=== PATIENT | female | born 1955 | race Caucasian/White ===

== ENCOUNTER 2016-10-11 17:23 | Emergency (ER) | payer BC, MEDICARE, OTHER ==
[~2016-10-11] VITALS: Ht 165.1 cm; Wt 121.2 kg
[~2016-10-11 17:23] MED LIST: ALBU8.5H8 INH; ALPR0.5T6 PO; APIX5TAB3 PO; ATOR40TA59 PO; Acetaminophen With Codeine PO; BACL10TA PO; Baclofen PO; CEFP200T PO; CELE100C PO; ESCITALOPRAM OX20 MG PO; ESOM40CA25 PO; FLUT10SP NS; FURO-68 PO; GUAI600T47 PO; HYDR50TA6 PO; INSU100C SQ; INSU100I13 SQ; INSU500I SQ; LOSA50TA6 PO; METF10002 PO; METH-37 PO; NYST1POW2 PO; OXYC1TAB9 PO; OXYM10TA3 PO; OXYM20TA17 PO; OXYM30TA PO; OXYM5TAB3 PO; PRAM0.125 PO; PRAM0.5T5 PO; PRAM0.753 PO; PRED-220 PO; PREG300C PO; eliquis; losartan; methocarbamol
[2016-10-11 17:35] VITALS: BP 140/71
--- NOTE | 2016-10-11 17:51 | PHYS DOC ---
General Chief Complaint: SKIN RASH/ABSCESS Stated Complaint: POISON BURKE Time Seen by MD: 17:48 Source: patient Exam Limitations: no limitations Problems: History of Present Illness Initial Comments Patient is a 61-year-old female with history of diabetes who comes to the ED complaining of poison burke. Patient states that she and her family got poison burke while cleaning her son's yard 2 weeks ago. After failing home remedies including topical bleach, topical apple cider, topical Nadya dishwashing detergent, she contacted her primary care doctor earlier this week and took a short course of low-dose prednisone as well as klfb-dwt-yefocsy topical steroids. Patient states that it hasn't helped that much and she has 1 lesion at her lateral left lower leg she thinks is infected. She has diabetic her glucose has been elevated due to prednisone however she has an insulin pump and titrates her insulin accordingly. She denies dyspnea on exertion cough wheeze hoarseness or lump in throat, she is uncertain when she last received tetanus vaccination but she knows it was not recent. Timing/Duration: 1 week Severity: moderate Modifying Factors: improves with cold therapy, worse with movement, improves with rest Associated Symptoms: rash Allergies: Coded Allergies: oxycodone (Verified Allergy, Intermediate, 04/20/16) vancomycin (Unverified Allergy, Intermediate, 04/20/16) I S O L A T I O N *CONTACT* (Verified Allergy, Unknown, 04/22/16) hx MRSA nasal screen 09/30/13 Past Medical History Medical History: other (arthritis, COPD, diabetes, fibromyalgia, hyperlipidemia , hypertension) Surgical History: noncontributory, other Social History Smoker: cigarettes Alcohol: rarely Drugs: none Review of Systems Constitutional: denies chills, denies diaphoresis, denies fever, denies malaise EENTM: denies eye pain, denies blurred vision, denies ear pain, denies throat swelling, denies mouth swelling Respiratory: denies cough, denies orthopnea, denies shortness of breath, denies stridor, denies wheezing Cardiovascular: denies chest pain, denies palpitations, denies syncope Gastrointestinal: denies diarrhea, denies nausea, denies vomiting Genitourinary: denies frequency, denies hematuria Musculoskeletal: denies back pain, denies joint swelling, denies neck pain Skin: see HPI Physical Exam General Appearance: no apparent distress, obese Ear, Nose, Throat: hearing grossly normal, normal ENT inspection, normal pharynx Neck: non-tender, supple Respiratory: lungs clear, normal breath sounds, no respiratory distress Back: no CVA tenderness, no vertebral tenderness Extremities: normal range of motion, no pedal edema, no calf tenderness Neurologic/Psychiatric: 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 Patient does not want to remain in the department to see if medications work she is requesting treatment and discharge she will follow-up as needed. She was advised to drink alcohol in moderation and discontinue smoking cigarettes. Departure Time of Disposition: 17:49 Disposition: 01 HOME, SELF-CARE Diagnosis: poison burke with secondary cellulitis Condition: STABLE Patient Instructions: Cellulitis, Sesp-yj-Ppvz, Poison Burke, Htzf-jq-Kdoq, VIS, Tetanus, Diphtheria (Td); Tetanus, Diphtheria, Pertussis (Tdap) - CDC Additional Instructions: Rest, no strenuous activity. Remain in a cool temperature environment profitable symptom control. Change linens and towels daily. Vnoq-alt-uyyfsok Pepcid twice daily, dfct-gas-kprtfun Benadryl for daytime symptoms per package instructions. May also consider topical Benadryl. Prescription: Prednisone 20 mg twice daily for 5 days, hydroxyzine 25 mg for nighttime symptoms due to sedation. Doxycycline 100 mg twice daily for 7 days to be taken with food. Continue close glucose monitoring with insulin titration. Follow-up with your doctor on Friday for recheck. Return to the ED with new or changing symptoms. KARLY POWERS DO Oct 11, 2016 17:51
[2016-10-11] MEDS ORDERED: predniSONE 20 MG TABLET PO ONE (18:15)
[2016-10-11] MEDS ORDERED: DIPHTH,PERTUSS(ACELL),TET TOX 0.5 ML DISP.SYRIN. VAX IM ONE (18:15)
== END 2016-10-11 18:08 | disposition home or self-care (01) ==
LOC: ER 17:23
DX: L23.7 Allergic contact dermatitis due to plants, except food (principal); L03.116 Cellulitis of left lower limb; J44.9 Chronic obstructive pulmonary disease, unspecified; M79.7 Fibromyalgia; I10 Essential (primary) hypertension; E78.5 Hyperlipidemia, unspecified; E11.9 Type 2 diabetes mellitus without complications; F17.210 Nicotine dependence, cigarettes, uncomplicated; Z96.41 Presence of insulin pump (external) (internal); Z79.4 Long term (current) use of insulin; Z88.5 Allergy status to narcotic agent; Z88.1 Allergy status to other antibiotic agents; Z91.041 Radiographic dye allergy status
CPT/HCPCS: 90471; 90715; 99283; J7512

== ENCOUNTER 2019-12-19 03:27 | Emergency (ER) | payer BC, MEDICARE, OTHER ==
[~2019-12-19] VITALS: Ht 162.6 cm; Wt 82.0 kg
[~2019-12-19 03:27] MED LIST changes: +ALBU2.5V8 INH; -ALBU8.5H8 INH; -LOSA50TA6 PO; +LOSA50TA86 PO; -METF10002 PO; +METF10007 PO; +OXYC1TAB20 PO; -OXYC1TAB9 PO
--- NOTE | 2019-12-19 03:43 | PHYS DOC ---
Past History Past Medical History: Arthritis, COPD, Diabetes, Fibromyalgia, High Cholesterol, Hypertension Past Surgical History: Cholecystectomy, Other Smoking: Cigarettes Alcohol Use: Rarely Drug Use: None General Adult EDM: Chief Complaint: MECHANICAL FALL HPI: HPI: ".. I got up to let the dogs out to go pee.. .. all three started barking .. Vaughn started it off... Misty and Antoine just went crazy too.. but I was afraid it would wake the neighbors... So was rushing through the sliding glass door.. missed stepped fell into frame hitting my Lt shoulder.. then went down hard on my face.. I was cristian knocked sense less.. could nt move for a bit.. and the all three of the dogs were all upset and all over me.. I was yelling for my .. the lip was squirting blood all over the place.. ".." Vaughn my baby.. he's a big chocolate lab but thinks he a lap dog..." Patient is a 64 year old female who presents with above hx and fall with head injury . Pt. has laceration 1 cm x 2 cm x 2 cm flap of upper lip with arterial bleeding. Patient states she had momentary loss of consciousness and was stunned with the fall. Patient complained of pain in left shoulder. Patient complaining of headache and facial pain, and has obvious ecchymosis on left side of face. Patient has obvious bruising to right hand. Patient has obvious muscle spasms para cervical and into the trapezius bilaterally. Patient does have history of previous chronic pain fibromyalgia. Is on a chronic pain regimen. Patient denies any recent travel outside the [facility]. No specific ill contacts. Patient does smoke. Patient normally follows with Dr. Cordoba. Review of Systems: Review of Systems: Constitutional: Denies fever or chills Eyes: Denies change in visual acuity HENT: Complains of head injury and lip laceration Respiratory: Denies cough or shortness of breath Cardiovascular: Denies chest pain or edema GI: Denies abdominal pain, nausea, vomiting, bloody stools or diarrhea : Denies dysuria Musculoskeletal: Complains of cervical and left shoulder pain Integument: Denies rash Neurologic: Complains of headache. Denies, focal weakness or sensory changes Endocrine: Denies polyuria or polydipsia Lymphatic: Denies swollen glands Psychiatric: Denies depression or anxiety Heart Score: HEART Score for Chest Pain: HEART Score for Chest Pain Response (Comments) Value History Slighlty/Non-Suspicious 0 ECG Normal 0 Total 0 Risk Factors: Risk Factors: DM, Current or recent (<one month) smoker, HTN, HLP, family history of CAD, obesity. Risk Scores: Score 0 - 3: 2.5% MACE over next 6 weeks - Discharge Home Score 4 - 6: 20.3% MACE over next 6 weeks - Admit for Clinical Observation Score 7 - 10: 72.7% MACE over next 6 weeks - Early Invasive Strategies Family History: Family History: Noncontributory Current Medications: Current Meds: See nursing for home meds Allergies: Allergies: Allergies Coded Allergies Type Severity Reaction Last Updated Verified oxycodone Allergy Intermediate 04/20/16 Yes vancomycin Allergy Intermediate 04/20/16 No I S O L A T I O N *CONTACT* Allergy Unknown 04/22/16 Yes Physical Exam: PE: Constitutional: in acute distress, non-toxic appearance. [] HENT: Normocephalic, left-sided face contused, bilateral external ears normal, oropharynx moist, no oral exudates, nose normal. Laceration to upper lip. Dentures. Has good bite. Eyes: PERRLA, EOMI, conjunctiva normal, no discharge. [] Neck: Normal but guarded range of motion, cervical muscle spasms and tenderness, , no stridor. [] Cardiovascular:Heart rate regular rhythm, no murmur [, PMI at the left Lungs & Thorax: Bilateral breath sounds equal apexes scattered wheezes on auscultation [] Abdomen: Bowel sounds normal, soft, no tenderness, no masses, no pulsatile masses. [] Old surgery scars Skin: Warm, dry, no erythema, no rash. Has areas of skin that she picks Back: No tenderness, no CVA tenderness. [] Extremities: Left shoulder tenderness, no cyanosis, no clubbing, ROM intact, no edema. [] Multiple surgery scars right shoulder. Ecchymosis on right hand Neurologic: Alert and oriented X 3, moves all extremities on request, has distal sensory no focal deficits noted. [] Psychologic: Affect anxious, judgement normal, mood normal. [] EKG: EKG: [] Radiology/Procedures: Radiology/Procedures: [] [address] [place] [id number] IMAGING REPORT Signed PATIENT: HENRRY CARDOZA ACCOUNT: [id number] : 1955 LOCATION: ER AGE: 64 SEX: F EXAM STATUS: REG ER ORD. PHYSICIAN: REVA CANDELARIA MD REASON: face plant during fall PROCEDURE: CT HEAD AND CERVICAL SPINE WO CT head without contrast. Maxillofacial CT without contrast. CT cervical spine without contrast. HISTORY: Fall, facial trauma, pain. CT head findings: No intracranial hemorrhage, mass, hydrocephalus, extra-axial fluid collections or infarction. No acute ischemic changes evident. Left facial soft tissue edema and swelling. Orbits, mastoids and bones are unremarkable. IMPRESSION: No acute intracranial CT abnormality. Maxillofacial CT findings: Cartilaginous nasal septal perforation posteriorly. Mucosal thickening floor the left maxillary sinus. No facial bone fracture. Maxilla intact. Mandible intact. Bony orbits intact. Nasal bones intact. No orbital edema or hematoma. There is mild soft tissue edema and swelling of the left female are facial soft tissues. IMPRESSION: Facial bones intact. Left facial soft tissue edema and swelling likely contusion. CT cervical spine findings: Craniocervical junction intact. Cervical vertebral body height and alignment intact. No fracture of the cervical spine. Cervical disc bulges as well as disc osteophytes and uncovertebral spurring. Spinal canal and neural foraminal stenoses most notable at C4-C5 with a large disc herniation with severe canal stenosis, and at C5-C6 with a bulky disc osteophyte with severe canal stenosis. IMPRESSION: No acute osseous injury of the cervical spine. Cervical disc disease as described above. Exposure: One or more of the following individualized dose reduction techniques were utilized for this examination: 1. Automated exposure control 2. Adjustment of the mA and/or kV according to patient size 3. Use of iterative reconstruction technique Electronically signed by: Kathy Kahn MD (12/19/2019 5:03 AM) [facility] DICTATED AND SIGNED BY: KATHY KAHN MD DATE: 12/19/19 0503 CC: EDELMIRA CORDOBA MD; REVA CANDELARIA MD ~ Course & Med Decision Making: Course & Med Decision Making Pertinent Labs and Imaging studies reviewed. (See chart for details) Procedure note-laceration repair-injected into the laceration with 2% lidocaine after cleaning. Area re cleaned, laceration irrigated with normal saline. Closed laceration with 4 x 4-0 Vicryl sutures. One internal Vicryl suture. Patient keep laceration clean. Avoid excessive hot fluids or spicy foods. Apply Polysporin 4 times a day. Informed patient may lose the flap avulsion laceration. Patient discharged with head injury precautions. Take meds as previous directed. Sleep with head elevated. Use ice packs. To expect increased soreness and stiffness the next 5 days. But should gradually have improvement after day 5. Patient follow-up primary care. Patient return if any concerns. Impression": 1. Trip and fall 2. Head injury 3. Multiple contusions 4. Cervical sprain strain 5. 2 x 2 x 1 cm upper lip laceration-avulsion [] Tiffany Disclaimer: Dragon Disclaimer: This electronic medical record was generated, in whole or in part, using a voice recognition dictation system. Departure Departure: Disposition: 01 HOME/RESIDENCE PRIOR TO ADM Condition: STABLE Referrals: EDELMIRA CORDOBA MD (PCP) Tiffany Disclaimer This chart was dictated in whole or in part using Voice Recognition software in a busy, high-work load, and often noisy Emergency Department environment. It may contain unintended and wholly unrecognized errors or omissions. REVA CANDELARIA MD Dec 19, 2019 03:43
[2019-12-19] MEDS ORDERED: DIPH,PERTUSS(ACELL),TET VAC/PF 0.5 ML SYRINGE. VAX IM ONE (04:00)
[2019-12-19] MEDS ORDERED: LIDOCAINE 2% 20 ML VIAL. IJ ONE (04:00)
[2019-12-19] MEDS ORDERED: MORPHINE SULFATE 10 MG/ML SYRINGE. SQ ONE (04:15)
--- NOTE | 2019-12-19 05:06 | RAD ---
CT head without contrast. Maxillofacial CT without contrast. CT cervical spine without contrast. HISTORY: Fall, facial trauma, pain. CT head findings: No intracranial hemorrhage, mass, hydrocephalus, extra-axial fluid collections or infarction. No acute ischemic changes evident. Left facial soft tissue edema and swelling. Orbits, mastoids and bones are unremarkable. IMPRESSION: No acute intracranial CT abnormality. Maxillofacial CT findings: Cartilaginous nasal septal perforation posteriorly. Mucosal thickening floor the left maxillary sinus. No facial bone fracture. Maxilla intact. Mandible intact. Bony orbits intact. Nasal bones intact. No orbital edema or hematoma. There is mild soft tissue edema and swelling of the left female are facial soft tissues. IMPRESSION: Facial bones intact. Left facial soft tissue edema and swelling likely contusion. CT cervical spine findings: Craniocervical junction intact. Cervical vertebral body height and alignment intact. No fracture of the cervical spine. Cervical disc bulges as well as disc osteophytes and uncovertebral spurring. Spinal canal and neural foraminal stenoses most notable at C4-C5 with a large disc herniation with severe canal stenosis, and at C5-C6 with a bulky disc osteophyte with severe canal stenosis. IMPRESSION: No acute osseous injury of the cervical spine. Cervical disc disease as described above. Exposure: One or more of the following individualized dose reduction techniques were utilized for this examination: 1. Automated exposure control 2. Adjustment of the mA and/or kV according to patient size 3. Use of iterative reconstruction technique Electronically signed by: Rachid Kahn MD (12/19/2019 5:03 AM) [facility]
[2019-12-19 05:15] VITALS: BP 143/70
--- NOTE | 2019-12-19 05:16 | RAD ---
Left shoulder AP and scapular x-rays 3 views HISTORY: Fall, pain. FINDINGS: Arthrosis acromioclavicular joint with osteophytes and mild capsule thickening. No fracture. No dislocation. No distraction of the acromioclavicular joint. IMPRESSION: No acute osseous injury of the left shoulder. PA and lateral chest x-rays HISTORY: Fall, pain. FINDINGS: Heart size normal. Mediastinal silhouette is normal. No pneumothorax, pulmonary opacities or pleural effusions. Lower thoracic bridging disc osteophytes. Absence right lateral clavicle likely surgical resection. IMPRESSION: No acute process in the chest. Electronically signed by: Rachid Kahn MD (12/19/2019 5:13 AM) [facility]
== END 2019-12-19 05:48 | disposition home or self-care (01) ==
LOC: ER 03:27
DX: S01.511A Laceration without foreign body of lip, initial encounter (principal); S13.9XXA Sprain of joints and ligaments of unspecified parts of neck, initial encounter; S00.83XA Contusion of other part of head, initial encounter; S60.221A Contusion of right hand, initial encounter; M19.90 Unspecified osteoarthritis, unspecified site; J44.9 Chronic obstructive pulmonary disease, unspecified; E11.9 Type 2 diabetes mellitus without complications; M79.7 Fibromyalgia; E78.00 Pure hypercholesterolemia, unspecified; I10 Essential (primary) hypertension; F17.210 Nicotine dependence, cigarettes, uncomplicated; Z88.5 Allergy status to narcotic agent; Z88.1 Allergy status to other antibiotic agents; Z88.8 Allergy status to other drugs, medicaments and biological substances; W10.8XXA Fall (on) (from) other stairs and steps, initial encounter; Y93.89 Activity, other specified; Y92.89 Other specified places as the place of occurrence of the external cause; Y99.8 Other external cause status
CPT/HCPCS: 12011; 70450; 70486; 71046; 72125; 73030; 90471; 90715; 96372; 99285; J2270

== ENCOUNTER 2020-04-10 01:49 | Emergency (ER) | payer MEDICARE, BC, OTHER ==
[~2020-04-10] VITALS: Ht 162.6 cm; Wt 82.0 kg
--- NOTE | 2020-04-10 01:56 | PHYS DOC ---
Past History Past Medical History: CAD, COPD, Diabetes, DVT, Fibromyalgia, High Cholesterol, Hypertension, Other Additional Past Medical Histor: Cirosis, MS, Fibromyalgia Past Medical History Morbid Obesity, sleep apnea, Past Surgical History: Cholecystectomy, Knee Replacement, Oophorectomy, Tubal ligation Additional Past Surgical Histo: Gastric bypass, partial hysterectomy, shoulder surgery rt Past Surgical History Carpal tunnel , paraspinal abscess drainage Smoking: Cigarettes Alcohol Use: None Drug Use: None General Adult HPI: HPI: ".. I didnt see my dog Antoine.. he is eleven yrs old.. and black .and I tripped over him ..landed hard on this Lt shoulder.. I can't even move because of the pain.. I did bang up my knees.. but they are okay.. " ..." Antoine I think is okay.. ".. " I think you are the one that sutured up my mouth the last time I fell over the dogs..".." back in December..." " I think .. I am hurt worse this time... " Patient is a 64 year old FEMALE who presents with above hx of trip and fall over her dog "Antoine". Pt. localized pain primarily in Lt. shoulder . Obvious edema, contusion. Pt.dose have deltoid sensation, but can not move at all because of pain. Pt. denies any head injury. Denies any chest pain. Other than that and the area of the shoulder injury and mid back . Does have distal cap refill and left hand that appears to be somewhat equal to right hand. Patient is right-hand dominant. Does have contusions both knees. Patient is ambulatory however with the contusions to the knees. . Recent travel. No severe ill contacts. Does have a history of diabetes type 2, COPD, hypertension, hyperlipidemia, fatty liver, morbid obesity, obstructive sleep apnea and is on CPAP, severe osteoarthritis, DVT, paraspinal abscesses, DWAYNE, carpal tunnel syndrome, fibromyalgia, tobacco use, chronic pain, and history of multiple surgeries. Patient denies any recent travel outside the [place] area. No specific ill contacts. Patient does continue to smoke. Patient has approximately [id number] smoking history. Patient rarely drinks alcohol. Does not use drugs. 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 Pt. follows with Dr. Cordoba as a primary Review of Systems: Review of Systems: Constitutional: Denies fever or chills Eyes: Denies change in visual acuity HENT: Denies nasal congestion or sore throat Respiratory: Denies cough or shortness of breath Cardiovascular: Denies chest pain or edema GI: Denies abdominal pain, nausea, vomiting, bloody stools or diarrhea : Denies dysuria Musculoskeletal: Patient's primary complaint tonight is left shoulder pain., Contusions bilateral knees Integument: Denies rash Neurologic: Denies headache, focal weakness or sensory changes Endocrine: Denies polyuria or polydipsia Lymphatic: Denies swollen glands Psychiatric: Denies depression or anxiety Family History: Family History: Father of complications of surgery at age 58, mother age 83 from breast cancer. Has 3 sons. Current Medications: Current Meds: See nursing for home meds Allergies: Allergies: Allergies Coded Allergies Type Severity Reaction Last Updated Verified oxycodone Allergy Intermediate 12/19/19 Yes vancomycin Allergy Intermediate 12/19/19 No I S O L A T I O N *CONTACT* Allergy Unknown 04/22/16 Yes Physical Exam: PE: Constitutional: inacute distress, non-toxic appearance. [] HENT: Normocephalic, atraumatic, bilateral external ears normal, oropharynx moist, no oral exudates, nose normal. []Scar on lip from previous suture repair Eyes: PERRLA, EOMI, conjunctiva normal, no discharge. [] Neck: Limited range of motion, no tenderness, supple, no stridor. Cardiovascular:Heart rate regular rhythm, no murmur, PMI not on the left Lungs & Thorax: Bilateral breath sounds equal apex with scattered wheezes auscultation [] Abdomen: Bowel sounds normal, soft, no tenderness, no masses, no pulsatile masses. Old surgical scars Skin: Warm, dry, no erythema, no rash. Poor turgor. Back: No tenderness, no CVA tenderness. Surgical scars to back Extremities: No tenderness, no cyanosis, no clubbing, ROM intact, no edema. Bilateral knee surgery scars. Right shoulder surgery scar Neurologic: Alert and oriented X 3, moves extremities on request however limited in left arm because of pain, does have distal sensory,, no focal deficits noted. [] Psychologic: Affect anxious judgement normal, mood normal. [] EKG: EKG: [] Radiology/Procedures: Radiology/Procedures: [][address] [id number] IMAGING REPORT Signed PATIENT: HENRRY CARDOZA ACCOUNT: [id number] : 1955 LOCATION: ER AGE: 64 SEX: F EXAM STATUS: REG ER ORD. PHYSICIAN: REVA CANDELARIA MD REASON: fall over dog Antoine PROCEDURE: SHOULDER 2+V LEFT XR SHOULDER_LEFT 2+ VIEWS, XR HUMERUS_LT 2 VIEWS Clinical Indication: Reason: fall over dog Antoine / Spl. Instructions: / History: Comparison: Left shoulder, 3 views, December 19, 2019. Findings: There is no glenohumeral dislocation. There is acute traumatic mildly comminuted fracture of the surgical neck of the proximal humerus. The distal fracture fra gment is medially displaced. No fracture of the more distal humerus is seen. No obvious deformity of the elbow. There is mild AC arthropathy. No acute displaced left rib fracture is identified. Left upper lung is clear. Soft tissues unremarkable. IMPRESSION: Acute traumatic fracture of the surgical neck of the humerus. Electronically signed by: Satnam Kuo MD (04/10/2020 3:11 AM) [facility] DICTATED AND SIGNED BY: SATNAM KUO MD DATE: 04/10/20309 CC: EDELMIRA CORDOBA MD; REVA CANDELARIA MD ~MTH0 0 Heart Score: HEART Score for Chest Pain: HEART Score for Chest Pain Response (Comments) Value Age >45 - < 65 1 Risk Factors 1 or 2 Risk Factors 1 Total 2 Risk Factors: Risk Factors: DM, Current or recent (<one month) smoker, HTN, HLP, family history of CAD, obesity. Risk Scores: Score 0 - 3: 2.5% MACE over next 6 weeks - Discharge Home Score 4 - 6: 20.3% MACE over next 6 weeks - Admit for Clinical Observation Score 7 - 10: 72.7% MACE over next 6 weeks - Early Invasive Strategies Course & Med Decision Making: Course & Med Decision Making Pertinent Labs and Imaging studies reviewed. (See chart for details) Patient call Ortho choice this morning.. Given [facility] orthro [phone] . Patient is ice packs as needed, wear splint and sling. Tylenol and ibuprofen for pain. For marked discomfort take Vicoprofen up to 4 times a day. Must follow-up with orthopedics since sometimes next fractures require surgical repair with repair. Patient follow-up primary care. Patient use extreme caution to avoid another fall. Impression: 1. Trip and fall- over dog " Antoine" 2. Traumatic fracture surgical neck of humerus 3. Non displaced rib fracture 4. DM 245 [] Dragon Disclaimer: Dragon Disclaimer: This electronic medical record was generated, in whole or in part, using a voice recognition dictation system. Departure Departure: Referrals: EDELMIRA CORDOBA MD (PCP) Scripts Oxycodone Hcl/Acetaminophen (PERCOCET 5-325 MG TABLET ) 1 Each Tablet 1 TAB PO PRN Q6HRS PRN for PAIN, #30 TAB Prov: REVA CANDELARIA MD 04/10/20 Hydrocodone/Ibuprofen (HYDROCODONE-IBUPROFEN 7.5-200 ) 1 Each Tablet 1 TAB PO PRN Q6HRS PRN for PAIN, #30 TAB 0 Refills Prov: REVA CANDELARIA MD 04/10/20 Dragon Disclaimer This chart was dictated in whole or in part using Voice Recognition software in a busy, high-work load, and often noisy Emergency Department environment. It may contain unintended and wholly unrecognized errors or omissions. Dragon Disclaimer This chart was dictated in whole or in part using Voice Recognition software in a busy, high-work load, and often noisy Emergency Department environment. It may contain unintended and wholly unrecognized errors or omissions. REVA CANDELARIA MD Apr 10, 2020 01:56
[2020-04-10] MEDS ORDERED: IV RINGERS SOLUTION,LACTATED 1,000 ML IV SCH (02:30)
[2020-04-10] MEDS ORDERED: MORPHINE SULFATE 10 MG/ML SYRINGE. SQ ONE ×2 (02:30→04:15)
--- NOTE | 2020-04-10 03:12 | RAD ---
XR CHEST 2V History: Reason: fall over dog Antoine / Comparison: Two-view chest December 19, 2019. Findings: The cardiomediastinal silhouette is normal. Pulmonary vasculature is normal. The lungs are clear. No pleural effusion or pneumothorax is seen. There is acute fracture of the proximal left humerus. Pleas e refer to separately dictated left shoulder radiographs. Degenerative endplate spurring of the thora cic spine. IMPRESSION: No acute cardiopulmonary process. Electronically signed by: Satnam Kuo MD (04/10/2020 3:10 AM) [facility]
--- NOTE | 2020-04-10 03:14 | RAD ---
XR SHOULDER_LEFT 2+ VIEWS, XR HUMERUS_LT 2 VIEWS Clinical Indication: Reason: fall over dog Antoine / Spl. Instructions: / History: Comparison: Left shoulder, 3 views, December 19, 2019. Findings: There is no glenohumeral dislocation. There is acute traumatic mildly comminuted fracture of the surg ical neck of the proximal humerus. The distal fracture fragment is medially displaced. No fracture of the more distal humerus is seen. No obvious deformity of the elbow. There is mild AC arthropathy. No acute displaced left rib fracture is identified. Left upper lung is clear. Soft tissues unremarkable . IMPRESSION: Acute traumatic fracture of the surgical neck of the humerus. Electronically signed by: Satnam Kuo MD (04/10/2020 3:11 AM) [email or web address]
[2020-04-10 03:26] LABS: BASO % 1 % (0-3); EOS # 0.1 x10^3/uL (0.0-0.7); EOS % 2 % (0-3); HEMATOCRIT 41.8 % (36.0-47.0); HEMOGLOBIN 13.7 g/dL (12.0-15.5); LYMPH # 1.8 x10^3/uL (1.0-4.8); LYMPH % 29 % (24-48); MEAN CORPUSCULAR HEMOGLOBIN 30 pg (25-35); MEAN CORPUSCULAR HGB CONC 33 g/dL (31-37); MEAN CORPUSCULAR VOLUME 91 fL (79-100); MONO # 0.3 x10^3/uL (0.0-1.1); MONO % 5 % (0-9); NEUT % 64 % (31-73); PLATELET COUNT 169 x10^3/uL (140-400); RED BLOOD COUNT 4.62 x10^6/uL (3.50-5.40); WHITE BLOOD COUNT 6.2 x10^3/uL (4.0-11.0)
[2020-04-10 03:38] LABS: CALCIUM 8.7 mg/dL (8.5-10.1); CREATININE 0.9 mg/dL (0.6-1.0); GFR 63.4; POTASSIUM 4.5 mmol/L (3.5-5.1)
[2020-04-10] MEDS ORDERED: HYDR-1179 PO (03:58)
--- NOTE | 2020-04-10 04:48 | EKG ---
[address] [address] Test Date: 2020-04-10 Test Time: 04:34:40 Pat Name: HENRRY CARDOZA Department: Room: Gender: F Scanning Clerk: YOVANA : 1955 Requested By: REVA CANDELARIA Order Number: [id number] Reading MD: Measurements Intervals [place] Rate: 73 P: 34 CO: 202 QRS: 29 QRSD: 68 T: 38 QT: 366 QTc: 407 Interpretive Statements SINUS RHYTHM LOW LIMB LEAD VOLTAGE NO SPECIFIC ECG ABNORMALITIES RI6.02 No previous ECG available for comparison
[2020-04-10 05:10] VITALS: BP 131/78
[2020-04-10] MEDS ORDERED: OXYC1TAB15 PO (05:13)
== END 2020-04-10 05:10 | disposition home or self-care (01) ==
LOC: ER 01:49
DX: S42.212A Unspecified displaced fracture of surgical neck of left humerus, initial encounter for closed fracture (principal); S22.32XA Fracture of one rib, left side, initial encounter for closed fracture; S80.02XA Contusion of left knee, initial encounter; S80.01XA Contusion of right knee, initial encounter; E11.9 Type 2 diabetes mellitus without complications; J44.9 Chronic obstructive pulmonary disease, unspecified; I10 Essential (primary) hypertension; E78.5 Hyperlipidemia, unspecified; E66.01 Morbid (severe) obesity due to excess calories; Z68.31 Body mass index [BMI] 31.0-31.9, adult; M79.7 Fibromyalgia; Z98.84 Bariatric surgery status; F17.210 Nicotine dependence, cigarettes, uncomplicated; Z88.5 Allergy status to narcotic agent; Z88.1 Allergy status to other antibiotic agents; Z88.8 Allergy status to other drugs, medicaments and biological substances; W01.0XXA Fall on same level from slipping, tripping and stumbling without subsequent striking against object, initial encounter; Y93.89 Activity, other specified; Y92.89 Other specified places as the place of occurrence of the external cause; Y99.8 Other external cause status
CPT/HCPCS: 29105; 36415; 71046; 73030; 73060; 80048; 82550; 84484; 85025; 85610; 85730; 93005; 96360; 96361; 96372; 99285; J2270; J7120

== ENCOUNTER → 2020-04-27 | Outpatient (CLI) | payer MEDICARE, BC, OTHER ==
[2020-04-10 05:10] VITALS: BP 131/78
[~2020-04-27] MED LIST changes: +HYDR-1179 PO; -HYDR50TA6 PO; +HYDR50TA9 PO; +OXYC1TAB15 PO
--- NOTE | 2020-04-27 16:29 | RAD ---
Left shoulder 3 views INDICATION: Shoulder pain COMPARISON: 04/10/2020 left shoulder x-rays FINDINGS: Plate and screw construct fixation of the proximal left humeral neck fracture is newly apparent with stable mild deformity of the surgical neck of the left humerus. There is no significant callus format ion. No dislocation. No additional fractures. Coarse reticular densities in the lungs are incidentall y noted, similar to prior. IMPRESSION: Plate and screw construct fixation of a left femoral neck fracture with residual deformity and no sig nificant callus formation shown. Electronically signed by: Jed Morales MD (04/27/2020 4:27 PM) [id number]
== END ==
LOC: RAD 12:47
PROVIDERS: ATTEND Physician Assistant
DX: S72.092D Other fracture of head and neck of left femur, subsequent encounter for closed fracture with routine healing (principal); X58.XXXD Exposure to other specified factors, subsequent encounter; Z98.890 Other specified postprocedural states
CPT/HCPCS: 73030

== ENCOUNTER → 2020-05-26 | Outpatient (CLI) | payer MEDICARE, BC, OTHER ==
--- NOTE | 2020-05-26 11:55 | RAD ---
EXAM: Left shoulder, 3 views. HISTORY: Pain. Fracture follow-up. COMPARISON: 04/27/2020 FINDINGS: 3 views of the left shoulder obtained. There is internal fixation of a proximal humeral fra cture with a plate and multiple screws. There has been no significant interval healing along the frac ture line compared to the prior study. There is no evidence of instrumentation loosening. IMPRESSION: Internal fixation of a proximal humeral fracture. There has been no change in instrumenta tion and no significant interval healing. Electronically signed by: Medina Seth MD (05/26/2020 11:52 AM) [id number]
== END ==
LOC: RAD 11:26
PROVIDERS: ATTEND Physician Assistant
DX: S42.292D Other displaced fracture of upper end of left humerus, subsequent encounter for fracture with routine healing (principal); X58.XXXD Exposure to other specified factors, subsequent encounter
CPT/HCPCS: 73030

== ENCOUNTER → 2020-07-07 | Outpatient (CLI) | payer MEDICARE, BC, OTHER ==
--- NOTE | 2020-07-07 10:38 | RAD ---
EXAM: Left shoulder, 2 views. HISTORY: Pain. COMPARISON: 05/26/2020 FINDINGS: 2 views of the left shoulder obtained. There has been internal fixation of a proximal humer al fracture with a plate and multiple screws. There is no evidence of instrumentation loosening. The fracture line is slightly less distinct compared to the prior exam. There is no new fracture, disloca tion or subluxation. IMPRESSION: Suspected slight interval healing of a proximal humeral fracture status post internal fix ation Electronically signed by: Medina Seth MD (07/07/2020 10:36 AM) [id number]
== END ==
LOC: RAD 10:25
PROVIDERS: ATTEND Physician Assistant
DX: M25.512 Pain in left shoulder (principal)
CPT/HCPCS: 73030

== ENCOUNTER → 2020-07-21 | Outpatient (CLI) | payer MEDICARE, BC, OTHER ==
--- NOTE | 2020-07-21 13:23 | RAD ---
EXAM: AP and lateral views left humerus DATE: 07/21/2020 8:31 AM INDICATION: Reason: CLOSED DISPLACED FX OF PROXIMAL END OF LEFT HUMERUS / Spl. Instructions: / Histo ry: . COMPARISON: 05/26/2020, 07/07/2020 FINDINGS: Screw plate fixation of the proximal left humeral fracture in stable alignment. No definite hardware complication. Fracture planes are less conspicuous suggesting progressive healing. IMPRESSION: 1. No acute fracture or dislocation. 2. Progressively healing proximal left humeral fracture post reduction and fixation is stable in ali gnment. Electronically signed by: Sahil Lugo MD (07/21/2020 1:21 PM) [id number]
== END ==
LOC: RAD 08:26
PROVIDERS: ATTEND Physician Assistant
DX: S42.292A Other displaced fracture of upper end of left humerus, initial encounter for closed fracture (principal); X58.XXXA Exposure to other specified factors, initial encounter; Y93.89 Activity, other specified; Y92.89 Other specified places as the place of occurrence of the external cause; Y99.8 Other external cause status
CPT/HCPCS: 73030

== ENCOUNTER → 2020-07-21 | Outpatient (CLI) | payer MEDICARE, BC, OTHER ==
--- NOTE | 2020-07-21 15:07 | RAD ---
XR CERVICAL SPINE 2-3V 07/21/2020 9:24 AM INDICATION: Radiculopathy of cervical region COMPARISON: None available. TECHNIQUE: Lateral, AP, and odontoid views of the cervical spine are provided. FINDINGS/ IMPRESSION: 1. There is no acute fracture identified. 2. There is 2 mm retrolisthesis of C5 on C6. Moderate disc height loss at C5-C6 with mild anterior ma rginal osteophytosis. There is no prevertebral edema. 3. Mild facet arthropathy. 4. Mild uncovertebral joint disease at C5-C6. 5. Lateral masses of C1 articulate appropriately with the C2 vertebral body. Electronically signed by: Jannet Sams MD (07/21/2020 3:05 PM) [id number]
== END ==
LOC: RAD 09:18
PROVIDERS: ATTEND Physician Assistant
DX: M47.22 Other spondylosis with radiculopathy, cervical region (principal); M43.12 Spondylolisthesis, cervical region; M25.78 Osteophyte, vertebrae
CPT/HCPCS: 72040

== ENCOUNTER → 2020-08-25 | Outpatient (CLI) | payer MEDICARE, BC, OTHER ==
--- NOTE | 2020-08-25 09:27 | RAD ---
EXAM: LEFT SHOULDER 3 VIEWS. HISTORY: Fracture follow-up. COMPARISON: 07/21/2020. FINDINGS: There are changes of internal fixation of a left proximal humeral fracture with a lateral p late and screws. Some of the screws appear to extend beyond the cortex of the humeral articular surfa ce to 3 mm. Alignment is unchanged. Periosteal reaction indicates early healing changes. Glenohumeral joint spaces and alignment are maintained. Acromioclavicular osteoarthritis is mild. IMPRESSION: 1. Early healing of an internally fixed left proximal humeral fracture in stable alignment. Some of t he fixation screws extend beyond the cortex of the articular surface to 3 mm. Electronically signed by: Tegan Delong MD (08/25/2020 9:25 AM) [id number]
== END ==
LOC: RAD 08:51
PROVIDERS: ATTEND Physician Assistant
DX: S42.292D Other displaced fracture of upper end of left humerus, subsequent encounter for fracture with routine healing (principal); X58.XXXD Exposure to other specified factors, subsequent encounter
CPT/HCPCS: 73030

== ENCOUNTER → 2020-10-09 | Outpatient (CLI) | payer MEDICARE, BC, OTHER ==
--- NOTE | 2020-10-10 09:26 | RAD ---
XR SHOULDER_LEFT 2+ VIEWS History: Reason: LEFT SHOULDER PAIN / Spl. Instructions: / History: Technique: 3 views left shoulder Comparison: August 25, 2020 Findings: Internal fixation left proximal humerus healing fracture, unchanged alignment. No dislocation. No new fracture. Impression: 1. Internal fixation left proximal humerus healing fracture, unchanged alignment. Electronically signed by: Trever Martínez DO (10/10/2020 9:23 AM) [id number]
== END ==
LOC: RAD 14:16
PROVIDERS: ATTEND Physician Assistant
DX: S42.292D Other displaced fracture of upper end of left humerus, subsequent encounter for fracture with routine healing (principal); X58.XXXD Exposure to other specified factors, subsequent encounter
CPT/HCPCS: 73030